=== PATIENT | female | born 1945 | race Caucasian/White ===

== ENCOUNTER → 2017-08-21 | Day surgery (SDC) | payer OTHER ==
[~2017-08-21] VITALS: Ht 167.6 cm; Wt 72.6 kg
[~2017-08-21] MED LIST: ATORVASTATIN CA10 M1 PO; CALTRATE 600 +1 EACH PO; CENTRUM SILVER1 EAC3 PO; HYDROCHLOROTH12.5 M2 PO; LEVOTHYROXINE125 MCG PO; LOPRESSOR100 M1 PO; VITAMIN D1000 UNIT PO
--- NOTE | 2017-08-21 09:36 | Operative Report ---
Operative/Inv Procedure Report Surgery Date: 08/21/17 Name of Procedure: Cataract extraction lens implantation left eye Pre-Operative Diagnosis: Age-related cataract left eye 20/40 vision 20/200 glare vision Post-Operative Diagnosis: Same Estimated Blood Loss: none Surgeon/Research Animal Attendant: Hosea EDMONDSON,Paolo Meyers Anesthesia: local monitored anesthesi Complications: None Operative/Procedure Note Note: The patient was brought to the operating room standard monitoring equipment was attached the patient was prepped and draped in the usual fashion for intraocular surgery. A lid speculum was placed to retract the lids. The case was begun by making a temporal incision with a 2.4 mm keratome. The eye was stabilized with a Howell ring during this incision. 1 mL of non-preserved lidocaine was introduced into the anterior chamber to provide anesthesia. The anterior chamber was then filled and deepened with viscoelastic. A curvilinear capsulorrhexis was achieved using a 30-gauge needle and is a cystotome and capsulorrhexis was finished using a Utrata forceps. A second or paracentesis incision was made temporally with a 1 mm MVR blade. The lens was then hydrodissected with balanced salt solution and found to be rotatable. The lens was emulsified using phacoemulsification and a modified four-quadrant cracking technique. The residual cortical material was removed using automated irrigation and aspiration and as much of the anterior capsular rim was cleaned as well as possible. The posterior capsule was cleaned first with the automated machine on a low setting and then manually with a Jermaine squeegee. The capsular bag was deepened with viscoelastic. The lens a Technis 1 26.0 Diopter placed into the bag under direct visualization and rotated so that the haptics were at 12 and 6:00. Viscoelastic was then removed from the eye by flushing it out and then by automated irrigation and aspiration. The eye was pressurized to a normal tone. 1/10 of a cc of vancomycin solution was introduced into the anterior chamber to provide antibiotic prophylaxis. The wounds were sealed by hydrating the stroma adjacent to them and the eye was left at a proper tone after the wounds were checked and found not to be leaking. The lid speculum was removed from the orbit. Antibiotic and steroid drops were placed on the eye and then the eye was shielded. Monitoring equipment was removed from the patient and the patient was removed from the operative suite to the holding area. The patient tolerated the procedure well and will be seen in the office tomorrow.
== END ==
LOC: STS 01:36
DX: H25.9 Unspecified age-related cataract (principal); I10 Essential (primary) hypertension; E03.9 Hypothyroidism, unspecified
CPT/HCPCS: J2250; V2632

== ENCOUNTER 2017-09-05 03:26 | Observation (INO) | payer OTHER ==
[~2017-09-05] VITALS: Ht 167.6 cm; Wt 78.6 kg
--- NOTE | 2017-09-05 09:46 | Operative Report ---
Operative/Inv Procedure Report Surgery Date: 09/05/17 Name of Procedure: Cataract extraction lens implantation right eye Pre-Operative Diagnosis: Age related cataract right eye 20/40 vision 20/200 glare vision Post-Operative Diagnosis: Same Estimated Blood Loss: none Surgeon/Lead Cashier: Hosea EDMONDSON,Paolo Meyers Anesthesia: local monitored anesthesi Complications: None Operative/Procedure Note Note: The patient was brought to the operating room standard monitoring equipment was attached the patient was prepped and draped in the usual fashion for intraocular surgery. A lid speculum was placed to retract the lids. The case was begun by making 1 partial-thickness corneal relaxing incisions at 60. A temporal incision with a 2.4 mm keratome. The eye was stabilized with a Howell ring during this incision. 1 mL of non-preserved lidocaine was introduced into the anterior chamber to provide anesthesia. The anterior chamber was then filled and deepened with viscoelastic. A curvilinear capsulorrhexis was achieved using a 30-gauge needle and is a cystotome and capsulorrhexis was finished using a Utrata forceps. A second or paracentesis incision was made temporally with a 1 mm MVR blade. The lens was then hydrodissected with balanced salt solution and found to be rotatable. The lens was emulsified using phacoemulsification and a modified four-quadrant cracking technique. The residual cortical material was removed using automated irrigation and aspiration and as much of the anterior capsular rim was cleaned as well as possible. The posterior capsule was cleaned first with the automated machine on a low setting and then manually with a Jermaine squeegee. The capsular bag was deepened with viscoelastic. The lens a Technis 1 25.5 Diopter placed into the bag under direct visualization and rotated so that the haptics were at 12 and 6:00. Viscoelastic was then removed from the eye by flushing it out and then by automated irrigation and aspiration. The eye was pressurized to a normal tone. 1/10 of a cc of vancomycin solution was introduced into the anterior chamber to provide antibiotic prophylaxis. The wounds were sealed by hydrating the stroma adjacent to them and the eye was left at a proper tone after the wounds were checked and found not to be leaking. The lid speculum was removed from the orbit. Antibiotic and steroid drops were placed on the eye and then the eye was shielded. Monitoring equipment was removed from the patient and the patient was removed from the operative suite to the holding area. The patient tolerated the procedure well and will be seen in the office tomorrow.
--- NOTE | 2017-09-05 13:05 | Cons- Cardiology ---
General Information and HPI Consulting Request Date of Consult: 09/05/17 Requested By: Hosea EDMONDSON,Paolo Meyers Reason for Consult: Atrial fibrillation Source of Information: patient Exam Limitations: no limitations History of Present Illness: The patient is a 72-year-old female who is followed Demetrio Street MD. The patient is in the hospital today for right cataract surgery with Dr. Jc. The patient was noted to be in atrial fibrillation subsequent to the procedure and I was asked see the patient for further evaluation. Patient has a history of hypertension and hypothyroidism which is been managed medically with no issues. She has had no recent changes in her medications. The patient does note that she has had intermittent palpitations for many years. She denies any documented history of atrial fibrillation. At the moment, the patient is in atrial fibrillation with a variable rate. She denies any significant cardiac symptoms at the moment although she does notice an intermittent fluttering. Otherwise she is totally stable. Allergies/Medications Allergies: Coded Allergies: No Known Allergies (09/04/17) Home Med List: Apixaban (Eliquis) 5 MG TABLET 5 MG PO BID A fib . Atorvastatin Calcium 10 MG TABLET 1 TAB PO QPM CHOLESTEROL (Reported) Calcium Carbonate/Vitamin D3 (Caltrate 600 + D Tablet) (Unknown Strength) TABLET (Unknown Dose) PO DAILY SUPPLEMENT (Reported) Cholecalciferol (Vitamin D3) (Vitamin D) 1,000 UNIT TABLET 1 TAB PO DAILY SUPPLEMENT (Reported) Hydrochlorothiazide 12.5 MG TABLET 1 TAB PO DAILY BP (Reported) Levothyroxine Sodium 125 MCG TABLET 0.5 TAB PO DAILY THYROID (Reported) Metoprolol Tartrate (Lopressor) 100 MG TABLET 1 TAB PO BID HEART/BP (Reported ) Multivit-Min/FA/Lycopen/Lutein (Centrum Silver Tablet) 0.4 MG-300 MCG-250 MCG TABLET 1 TAB PO DAILY SUPPLEMENT (Reported) Current Medications: Current Medications Sig/Edda Start time Last Medication Dose Route Stop Time Status Admin Cefuroxime Sodium 10 MG ONCE 09/05 NR RADHA 09/05 2358 Lidocaine/Epinephrine 3 ML ONE 09/05 NR RETR 09/05 2358 Past History Medical History Cardiovascular: hypertension Endocrine: hypothyroidism Surgical History Surgical History: cataract removal Exam & Diagnostic Data Vital Signs and I&O Vital Signs Date Time Temp Pulse Resp B/P B/P Pulse O2 O2 Flow FiO2 Mean Ox Delivery Rate 09/06 958 87 144/86 09/06 0649 97.6 87 20 144/86 96 Room Air 09/05 2247 97.8 99 18 108/60 97 09/05 2119 100 110/60 Intake & Output 09/06 0809/06 0000 09/05 1600 09/05 0800 09/05 0000 Intake Total 500 200 300 Output Total Balance 500 200 300 Intake, Oral 500 200 300 Patient 173 lb Weight Physical Exam: General Appearance: well developed/nourished, alert, awake, oriented Head: normal HEENT: Normal; right eye bandage in place post cataract surgery Neck: supple, JVP normal, carotid upstrokes normal bilaterally, no masses or thyromegaly Respiratory: chest non-tender, clear to auscultation and percussion bilaterally Cardiovascular: Irregular S1, S2, 1/6 systolic murmur Abdomen: normal bowel sounds, soft, non-tender Extremities: normal inspection, no edema Vascular: Pulses are 2+ and equal bilaterally Neurologic: Grossly normal/nonfocal Labs/[place] Results: Laboratory Tests 09/06 09/06 09/05 09/05 0440 0440 2230 1620 Chemistry Sodium (137 - 145 mmol/L) 144 Potassium (3.5 - 5.1 mmol/L) 4.0 Chloride (98 - 107 mmol/L) 102 Carbon Dioxide (22 - 30 mmol/L) 28 Anion Gap (5 - 16) 14 BUN (7 - 17 mg/dL) 17 Creatinine (0.5 - 1.0 mg/dL) 0.9 Estimated GFR (>60 ml/min) > 60 BUN/Creatinine Ratio (7 - 25 %) 18.9 Troponin I (< 0.11 ng/ml) < 0.01 < 0.01 < 0.01 Hematology CBC w Diff NO MAN DIFF REQ WBC (4.8 - 10.8 /CUMM) 6.8 RBC (4.20 - 5.40 /CUMM) 5.24 Hgb (12.0 - 16.0 G/DL) 15.0 Hct (37 - 47 %) 45.8 MCV (81.0 - 99.0 FL) 87.5 MCH (27.0 - 31.0 PG) 28.7 MCHC (33.0 - 37.0 G/DL) 32.8 L RDW (11.5 - 14.5 %) 14.5 Plt Count (130 - 400 /CUMM) 206 MPV (7.4 - 10.4 FL) 8.9 Gran % (42.2 - 75.2 %) 51.6 Lymphocytes % (20.5 - 51.1 %) 38.6 Monocytes % (1.7 - 9.3 %) 7.5 Eosinophils % (0 - 5 %) 1.6 Basophils % (0.0 - 2.0 %) 0.7 Absolute Granulocytes (1.4 - 6.5 /CUMM) 3.5 Absolute Lymphocytes (1.2 - 3.4 /CUMM) 2.6 Absolute Monocytes (0.10 - 0.60 /CUMM) 0.5 Absolute Eosinophils (0.0 - 0.7 /CUMM) 0.1 Absolute Basophils (0.0 - 0.2 /CUMM) 0 09/05 1107 Chemistry Sodium (137 - 145 mmol/L) 144 Potassium (3.5 - 5.1 mmol/L) 3.9 Chloride (98 - 107 mmol/L) 101 Carbon Dioxide (22 - 30 mmol/L) 31 H Anion Gap (5 - 16) 13 BUN (7 - 17 mg/dL) 22 H Creatinine (0.5 - 1.0 mg/dL) 0.8 Estimated GFR (>60 ml/min) > 60 BUN/Creatinine Ratio (7 - 25 %) 27.5 H Magnesium (1.6 - 2.3 mg/dL) 2.0 TSH (0.270 - 4.200 uIU/mL) 3.170 Diagnostic Data EKG Results Atrial fibrillation; reasonable rate control; nonspecific ST-T wave changes Assessment/Plan Assessment/Plan Assessment: 1. Paroxysmal atrial fibrillation with elevated rate 2. Hypertension 3. Hypothyroidism 4. Heart murmur 5. Status post right cataract surgery Recommendations: -The patient has a history of palpitations in the past. She is noted to be in atrial for ablation post cataract surgery. She is on metoprolol 100 mg twice daily. Despite this fact she has episodes of elevated heart rate. -Admit to [address] [place] [address] telemetry as observation -Monitor heart rate overnight -If necessary, increase metoprolol dose to 125 mg twice daily -The patient will need to be started on oral anticoagulation in the morning. Eliquis 5 mg twice daily can be started. I discussed the case with Dr. Jc and with Dr. Street her primary care physician. -In the morning, whether the patient has reverted to sinus rhythm or remains in atrial for ablation with controlled rate, she can be safely discharged at that time barring any unforeseen issues. -The patient will follow up with me in the office in 1-2 weeks for further evaluation -If possible, echocardiogram should be obtained prior to discharge. If this is not possible I will do it as an outpatient later. Consult Acknowledgment - Thank you for your consult request.
--- NOTE | 2017-09-05 14:21 | History & Physical ---
Kenrick EDMONDSON,Hector 09/05/17 1421: General Information and HPI MD Statement: I have seen and personally examined HOMERO IBARRA and documented this H&P. The patient is a 72 year old F who presented with a patient stated chief complaint of [a fib]. Source of Information: patient Exam Limitations: no limitations History of Present Illness: Patient is a 71-year-old female with a PMH significant for HTN, HLD, hypothyroidism, osteoarthritis, cataracts who underwent elective right eye cataract surgery today, and was found to be in A. fib after the procedure. She was in her usual state of health this morning when she presented for the procedure. The procedure was successful without other issues. Patient reports feeling a "fluttering" feeling in her chest but denies any chest pain, chest discomfort, shortness of breath, nausea, diaphoresis. His palpitations have resolved prior to being seen by the medical team. Patient follows with Demetrio Street MD, and reports that she has experienced intermittent episodes of palpitations since her 30s. She has been worked up by cardiology and reports that there was nothing found from the workup. She is currently comfortable and reports no pain in the right eye or pain or discomfort anywhere else at the moment. Allergies/Medications Allergies: Coded Allergies: No Known Allergies (09/04/17) Past History Travel History Traveled to [place] past 21 day No Medical History EENT: cataracts Cardiovascular: hypertension, hyperlipidemia Musculoskeletal: osteoarthritis Endocrine: hypothyroidism Surgical History Surgical History: cataract removal, nasal surgery secondary to trauma Past Family/Social History Family History Relations & Conditions if any SISTER FH: [place] (myocardial infarction), Onset: 60+. Psychosocial History Smoking Status: Former Smoker ETOH Use: occasional use Illicit Drug Use: denies illicit drug use Functional Ability ADLs Independent: dressing, eating, toileting, bathing. Ambulation: independent Review of Systems Review of Systems Constitutional: Denies: chills, diaphoresis, fever, malaise. EENTM: Denies: eye pain. Cardiovascular: Reports: palpitations. Denies: chest pain, orthopena, peripheral edema, syncope. Respiratory: Denies: cough, orthopnea, short of breath. GI: Reports: no symptoms. Genitourinary: Reports: no symptoms. Musculoskeletal: Reports: no symptoms. Skin: Reports: no symptoms. Neurological/Psychological: Denies: numbness, tingling. Exam & Diagnostic Data Last 24 Hrs of Vital Signs/I&O Vital signs as per PACU, BP 140s over 60s, saturating 98% on room air, pulse 100s-150s Physical Exam General Appearance Alert, Oriented X3, Cooperative, No Acute Distress HEENT patch over R eye Neck No JVD, +2 Carotid Pulse wo Bruit Cardiovascular Normal S1, Normal S2, tachycardic with HR in 100s, irregularly irregular rhythm Lungs Clear to Auscultation, Normal Air Movement Abdomen Normal Bowel Sounds, Soft, No Tenderness Neurological Cranial Nerves 3-12 NL Last 24 Hrs of Labs/[place]: Laboratory Tests 09/05/17 1107: Anion Gap 13, Estimated GFR > 60, BUN/Creatinine Ratio 27.5 H, Magnesium 2.0, TSH 3.170 Diagnostic Data EKG Results a fib Assessment/Plan Assessment: Patient is a 71-year-old female with a PMH significant for HTN, HLD, hypothyroidism, osteoarthritis, cataracts who underwent elective right eye cataract surgery today, and was found to be in A. fib after the procedure. Per the chart, the patient received 2.5 mg of Lopressor IV in the PACU for A fib with RVR #Problem list new onset A. fib with RVR #chronic medical problems #Cataract removal right eye surgery postop day 0 Plan -Place in observation on telemetry -Continuous telemetry monitoring -Rule out ACS with serial troponins and EKGs -Given that the patient has just converted to A fib we will hold anticoagulation for now and observe. -When now we will continue home dose of metoprolol 100 mg twice daily -Continue other home medications -Will start postoperative of optholamic drops prednisolone and ofloxacin, 4 times a day, tomorrow morning per optho -Cardiology recommendation was appreciated, patient is being followed by Dr. Quintana Diet: Heart healthy DVT prophylaxis: Alps, SC heparin CODE STATUS: Full code As Ranked By This Provider Problem List: 1. A-fib Core Measures/Misc (01/14) Acute Coronary Syndrome ACS Diagnosis: No Congestive Heart Failure Congestive Heart Failure Diagnosis No Cerebrovascular Accident CVA/TIA Diagnosis: No VTE (View Protocol) VTE Risk Factors Age>40 No Mechanical VTE Prophylaxis d/t N/A MechProphylax Ordered No VTE Pharm Prophylaxis d/t Surgical Contraindication Sepsis (View protocol) Sepsis Present: No Observation Initial Note - I have personally examined HOMERO IBARRA on 09/05/17 at 1437. The disposition of HOMERO IBARRA is uncertain at this time and before a determination can be made, she requires a period of observation for the following reasons [a fib] Kemar Lim 09/05/17 1429: Observation Initial Note - I have personally examined HOMERO IBARRA on 09/05/17 at 1556. The disposition of HOMERO IBARRA is uncertain at this time and before a determination can be made, she requires a period of observation for the following reasons [] Resident Review Statement Resident Statement: examined this patient, discussed with journalism intern, agreed with journalism intern Other Findings: 72 year old woman, former smoker with pmh history significant for B/L cataracts, HTN and hypothryoidism admitted today to same day surgery for Cataract extraction lens implantation right eye, found to be in atrial fibrillation with RVR during the procedure. On interview she stated that in her 30s she intermittent palpitations intermittent palpitations for which she had a workup done which was normal and did not reveal any cause. Since her 50s she has been experiencing "fluttering" which has been receiving in frequency as well as duration. These episodes often last for hours and occuring 2-3 times weekly. Denies chest pain, shortness of breath, orthopnea, lower extremity swelling, weakness, syncope, upper respiratory symptoms. Vitals afebrile, blood pressure 140s over 60s, saturating 98% on room air, heart rate 100-150 exam pertinent for S1-S2 no murmurs heard, no elevated JVP irregularly irregular pulse, rest of examination as above. Labs done in PACU BEP and TSH within normal limits Assessment/plan: New onset atrial fibrillation Was given IV 2.5 mg lopressor during her surgery. Given her symptoms, it is likely the patient has been going in and out of proximal A. fib for a few years now and the stress of surgery precipitated the RVR. We will admit her to telemetry floor for continuous cardiac monitoring, vitals per protocol. trend troponin EKG, echocardiogram to rule out atrial thrombus. ChadVASc score 3 with HAS BLED score [address] Will touch base with Dr[address] Jc to see when anticoagulation can be started. Will likely be started on Eliquis will continue her metoprolol Appreciate Cardiology input. Hypertension Continue HTCZ abd metoprolol Hypothyroidism continue levothryoxine Cataract removal right eye surgery postop day 0 no complication per Post op note DVT prophylaxis: ALPs till clearance from optho. diet: heart healthy full code. Ian Olsen MD 09/06/17 1120: General Information and HPI Allergies/Medications Home Med list Apixaban (Eliquis) 5 MG TABLET 5 MG PO BID A fib . Atorvastatin Calcium 10 MG TABLET 1 TAB PO QPM CHOLESTEROL (Reported) Calcium Carbonate/Vitamin D3 (Caltrate 600 + D Tablet) (Unknown Strength) TABLET (Unknown Dose) PO DAILY SUPPLEMENT (Reported) Cholecalciferol (Vitamin D3) (Vitamin D) 1,000 UNIT TABLET 1 TAB PO DAILY SUPPLEMENT (Reported) Hydrochlorothiazide 12.5 MG TABLET 1 TAB PO DAILY BP (Reported) Levothyroxine Sodium 125 MCG TABLET 0.5 TAB PO DAILY THYROID (Reported) Metoprolol Tartrate (Lopressor) 100 MG TABLET 1 TAB PO BID HEART/BP (Reported ) Multivit-Min/FA/Lycopen/Lutein (Centrum Silver Tablet) 0.4 MG-300 MCG-250 MCG TABLET 1 TAB PO DAILY SUPPLEMENT (Reported) Attending MD Review Statement Attending Statement Attending MD Statement: examined this patient, discuss w/resident/PA/EDUCATION TECHNICIAN, agreed w/resident/PA/EDUCATION TECHNICIAN, reviewed EMR data (avail) Attending Assessment/Plan: 72F PMH HTN, HLD, hypothyroidism, osteoarthritis, cataracts who underwent elective right eye cataract surgery today, and was found to be in A. fib after the procedure. Patient has a multi-year history of intermittent palpitations with no formal diagnosis of atrial fibrillation. She denies history of chest pain, lightheadedness, n/v, or syncope. She is currently asymptomatic. 1. New onset atrial fibrillation Plan - Observation in telemetry - Cardiology consult - Rate control - Will speak with cardiology about anti-coagulation - Continue home medications - DVT PPx
[2017-09-05 15:33] VITALS: BP 110/60
[2017-09-05 22:47] VITALS: BP 108/60
[2017-09-06 05:00] LABS: ABSOLUTE BASOPHIL COUNT 0 /CUMM (0.0-0.2); ABSOLUTE EOSINOPHIL COUNT 0.1 /CUMM (0.0-0.7); ABSOLUTE GRANULOCYTE CT 3.5 /CUMM (1.4-6.5); ABSOLUTE LYMPH COUNT 2.6 /CUMM (1.2-3.4); ABSOLUTE MONOCYTE COUNT 0.5 /CUMM (0.10-0.60); BASOPHIL % 0.7 % (0.0-2.0); EOSINOPHIL % 1.6 % (0-5); GRANULOCYTE % 51.6 % (42.2-75.2); HEMATOCRIT 45.8 % (37-47); MEAN CORPUSCULAR HGB 28.7 PG (27.0-31.0); MEAN CORPUSCULAR HGB CONC 32.8 G/DL (33.0-37.0); MEAN CORPUSCULAR VOLUME 87.5 FL (81.0-99.0); MEAN PLATELET VOLUME 8.9 FL (7.4-10.4); PLATELET COUNT 206 /CUMM (130-400); RBC DISTRIBUTION WIDTH 14.5 % (11.5-14.5); RED BLOOD CELL CT 5.24 /CUMM (4.20-5.40); WHITE BLOOD CELL COUNT 6.8 /CUMM (4.8-10.8)
[2017-09-06 06:49] VITALS: BP 144/86
--- NOTE | 2017-09-06 07:26 | PN-Observation ---
Kenrick EDMONDSON,Hector 09/06/17 0725: Observation Note Observation Note _ I have personally examined HOMERO IBARRA. her disposition is uncertain at this time. Before a determination can be made, she requires continued observation for the following reasons [new-onset A. fib]. Assessment/Plan Medical Assessment: Patient is a 71-year-old female with a PMH significant for HTN, HLD, hypothyroidism, osteoarthritis, cataracts who underwent elective right eye cataract surgery today, and was found to be in A. fib after the procedure. #Problem list new onset A. fib with RVR Patient remained in A. fib overnight, HR is well controlled on her current dose of beta-malena. Discussed with Dr. Quintana, cardiology who will follow with the patient after discharge within 1 week. -Start Eliquis 5 mg twice daily -Patient will continue her home metoprolol 100 mg twice daily as an outpatient as it has provided acceptable rate control so far. #chronic medical problems -Continue home medications #Cataract removal right eye surgery postop day [address] Jc over the phone, he will see the patient at 4 PM today after discharge. -Patient will continue prednisolone 1% eyedrops right eye 4 times a day, and ofloxacin eyedrops right eye 4 times a day Diet: Heart healthy DVT prophylaxis: Alps, SC heparin CODE STATUS: Full code Problem List: 1. A-fib Consulting Request: Consulting Specialty: Cardiology Subjective Follow-up For: New-onset A. fib Tele-Events Since Last Visit: A. fib with HR [id number], averaging in the [id number] Subjective: Patient was seen and examined at bedside. She is resting comfortably. She had no acute events overnight. She still states that she did not sleep well, however is unable to articulate why there is, states that she was just uncomfortable in general being in the hospital. She is eager to be discharged. And currently has no complaints. She states that the fluttering sensation in her chest is completely resolved. She denies any nausea, vomiting, fever, chills, chest pain, shortness of breath. Review of Systems Constitutional: Reports: see HPI. Objective Last 24 Hrs of Vital Signs/I&O Vital Signs Date Time Temp Pulse Resp B/P B/P Pulse O2 O2 Flow FiO2 Mean Ox Delivery Rate 09/06 0649 97.6 87 20 144/86 96 Room Air 09/05 2247 97.8 99 18 108/60 97 09/05 2119 100 110/60 09/05 1533 98.0 11 20 110/60 97 Room Air Intake & Output 09/06 0800 09/06 0000 09/05 1600 Intake Total 200 300 Output Total Balance 200 300 Intake, Oral 200 300 Patient 173 lb Weight Physical Exam General Appearance: Alert, Oriented X3, Cooperative, No Acute Distress Neck: No JVD Cardiovascular: Normal S1, Normal S2, irregularly irregular rhythm, tachycardic with HR in 100s Lungs: Clear to Auscultation, Normal Air Movement Abdomen: Normal Bowel Sounds, Soft, No Tenderness Neurological: Normal Speech, Normal Tone, Sensation Intact Extremities: No Clubbing, No Cyanosis, No Edema Current Medications: Current Medications Sig/Edda Start time Last Medication Dose Route Stop Time Status Admin Atorvastatin Calcium 10 MG QPM 09/05 2099 AC 09/05 PO 2118 Cefuroxime Sodium 10 MG ONCE 09/05 0000 DC RADHA 09/05 2358 Heparin Sodium 5,000 UNIT Q8 09/05 2199 AC 09/06 (Porcine) SC 0550 Heparin Sodium/ 25,000 UNIT Q24H 09/05 1830 DC Dextrose IV Dextrose/Water 500 ML Hydrochlorothiazide 12.5 MG DAILY 09/06 899 AC PO Levothyroxine Sodium 0.0625 MG DAILY 09/06 899 AC PO Lidocaine/Epinephrine 3 ML ONE 09/05 0000 DC RETR 09/05 2358 Metoprolol Tartrate 100 MG BID 09/05 2099 AC 09/05 PO 2118 Ofloxacin 1 GTT Q6 09/06 599 AC 09/06 OPH 0549 Prednisolone 1 GTT Q6 09/06 0600 AC 09/06 OPH 0549 Last 24 Hrs of Labs/Mics: Laboratory Tests 09/06/17 0440: Troponin I < 0.01 09/06/17 0440: Anion Gap 14, Estimated GFR > 60, BUN/Creatinine Ratio 18.9, CBC w Diff NO MAN DIFF REQ, RBC 5.24, MCV 87.5, MCH 28.7, MCHC 32.8 L, RDW 14.5, MPV 8.9, Gran % 51.6, Lymphocytes % 38.6, Monocytes % 7.5, Eosinophils % 1.6, Basophils % 0.7, Absolute Granulocytes 3.5, Absolute Lymphocytes 2.6, Absolute Monocytes 0.5, Absolute Eosinophils 0.1, Absolute Basophils 0 09/05/17 2230: Troponin I < 0.01 09/05/17 1620: Troponin I < 0.01 09/05/17 1107: Anion Gap 13, Estimated GFR > 60, BUN/Creatinine Ratio 27.5 H, Magnesium 2.0, TSH 3.170 Raúl EDMONDSON,Ian 09/06/17 1121: Addendum Addendum 72F PMH HTN, HLD, hypothyroidism, osteoarthritis, cataracts who underwent elective right eye cataract surgery today, and was found to be in A. fib after the procedure. Patient has a multi-year history of intermittent palpitations with no formal diagnosis of atrial fibrillation. She denies history of chest pain, lightheadedness, n/v, or syncope. She is currently asymptomatic. She is rate controlled. 1. New onset atrial fibrillation Plan - Stable for discharge home - Cardiology consult - Will speak with cardiology about anti-coagulation - Continue home medications
--- NOTE | 2017-09-06 07:33 | Patient Discharge Instructions ---
Discharge Instructions General Discharge Information You were seen/treated for: Atrial Fibrillation Special Instructions: Follow-up with your primary care physician within 1 week of discharge. Follow-up with Dr. Jc on the day of discharge. Follow-up with Dr. Pimentel within 1 week of discharge. We have provided you with a referral. Take all medications as directed, including the eye drops provided by Dr. Jc. Call your doctor or return to the ER if you should have chest pain, shortness of breath, lightheadedness or loss of consciousness. Acute Coronary Syndrome Inclusion Criteria At DC or during hospital stay patient has or had the following: ACS DIAGNOSIS No Discharge Core Measures Meds if any: Prescribed or Continued at Discharge Meds if any: NOT Prescribed or Continued at Discharge Congestive Heart Failure Inclusion Criteria At DC or during hospital stay patient has or had the following: CHF DIAGNOSIS No Discharge Core Measures Meds if any: Prescribed or Continued at Discharge Meds if any: NOT Prescribed or Continued at Discharge Cerebrovascular accident Inclusion Criteria At DC or during hospital stay patient has or had the following: CVA/TIA Diagnosis No Discharge Core Measures Meds if any: Prescribed or Continued at Discharge Meds if any: NOT Prescribed or Continued at Discharge Venous thromboembolism Inclusion Criteria VTE Diagnosis No VTE Type NONE VTE Confirmed by (Test) NONE Discharge Core Measures - Per Current guidelines, there needs to be overlap - treatment for the first 5 days of Warfarin therapy. - If discharged on Warfarin prior to 5 days of - overlap therapy, the patient will need to be - assessed for post discharge needs including - *Post discharge parental anticoagulation - *Warfarin and/or parental anticoagulation education - *Follow up date to check INR post discharge At least 5 days overlap therapy as Inpatient No Meds if any: Prescribed or Continued at Discharge Note: Overlap Therapy is Warfarin and Anticoagulant Meds if any: NOT Prescribed or Continued at Discharge
[2017-09-06] MEDS ORDERED: ELIQUIS5 M1 PO ×2 (09:13→10:39)
[2017-09-06 09:59] VITALS: BP 144/86
--- NOTE | 2017-09-06 16:02 | PN- Cardiology ---
Subjective Subjective: Patient is doing well today. No complaints or symptoms. She remains in atrial fibrillation. Objective Vital Signs and I&Os Patient is feeling fine today. She remains in atrial for ablation. Her heart rate is well controlled.Vital Signs Date Time Temp Pulse Resp B/P B/P Pulse O2 O2 Flow FiO2 Mean Ox Delivery Rate 09/06 0859 87 144/86 09/06 0649 97.6 87 20 144/86 96 Room Air 09/05 2247 97.8 99 18 108/60 97 09/05 2119 100 110/60 Intake & Output 09/06 1600 09/06 0800 09/06 0000 09/05 1600 09/05 0809/05 0000 Intake Total 500 200 300 Output Total Balance 500 200 300 Intake, Oral 500 200 300 Patient 173 lb Weight Physical Exam: General Appearance: well developed/nourished, alert, awake, oriented Head: normal HEENT: Normal Neck: supple, JVP normal, carotid upstrokes normal bilaterally, no masses or thyromegaly Respiratory: chest non-tender, clear to auscultation and percussion bilaterally Cardiovascular: Irregular S1, S2, 1/6 systolic murmur Abdomen: normal bowel sounds, soft, non-tender Extremities: normal inspection, no edema Vascular: Pulses are 2+ and equal bilaterally Neurologic: Grossly normal/nonfocal Current Medications: Current Medications Sig/Edda Start time Last Medication Dose Route Stop Time Status Admin Apixaban 5 MG BID 09/06 899 DCD 09/06 PO 1016 Atorvastatin Calcium 10 MG QPM 09/05 2099 DCD 09/05 PO 2119 Cefuroxime Sodium 10 MG ONCE 09/05 0000 DC RADHA 09/05 235 Heparin Sodium 5,000 UNIT Q8 09/05 2200 DC 09/06 (Porcine) SC 0550 Heparin Sodium/ 25,000 UNIT Q24H 09/05 1830 DC Dextrose IV Dextrose/Water 500 ML Hydrochlorothiazide 12.5 MG DAILY 09/06 899 DCD 09/06 PO 0959 Levothyroxine Sodium 0.0625 MG DAILY 09/06 899 DCD 09/06 PO 0914 Lidocaine/Epinephrine 3 ML ONE 09/05 0000 DC RETR 09/05 2359 Metoprolol Tartrate 100 MG BID 09/05 2099 DCD 09/06 PO 0959 Ofloxacin 1 GTT Q6 09/06 06 DCD 09/06 OPH 1215 Prednisolone 1 GTT Q6 09/06 0600 DCD 09/06 OPH 1215 Results Last 48 Hrs of Labs/Mics: Laboratory Tests 09/06/17 0440: Troponin I < 0.01 09/06/17 0440: Anion Gap 14, Estimated GFR > 60, BUN/Creatinine Ratio 18.9, CBC w Diff NO MAN DIFF REQ, RBC 5.24, MCV 87.5, MCH 28.7, MCHC 32.8 L, RDW 14.5, MPV 8.9, Gran % 51.6, Lymphocytes % 38.6, Monocytes % 7.5, Eosinophils % 1.6, Basophils % 0.7, Absolute Granulocytes 3.5, Absolute Lymphocytes 2.6, Absolute Monocytes 0.5, Absolute Eosinophils 0.1, Absolute Basophils 0 09/05/17 2230: Troponin I < 0.01 09/05/17 1620: Troponin I < 0.01 09/05/17 1107: Anion Gap 13, Estimated GFR > 60, BUN/Creatinine Ratio 27.5 H, Magnesium 2.0, TSH 3.170 Assessment/Plan Assessment/Plan Assessment: 1. Paroxysmal atrial for ablation 2. Hypertension 3. Hypothyroidism 4. Minimal to mild mitral and tricuspid insufficiency on echocardiogram 5. Status post right cataract surgery one day ago Recommendations: -From my perspective, the patient is stable for discharge today. -Continue current medications. -Eliquis 5 mg twice daily started -Case discussed with Dr. Jc, patient follow-up to be arranged with his office -Patient will follow up with me in the office in 1 week to make further plans. Continue telemetry? No
--- NOTE | 2017-09-07 11:02 | ECHOCARDIOGRAM REPORT ---
HOMERO IBARRA Age: 72 : 1945 Gender: F Exam Date: 09/06/2017 11:17 Exam Location: [address] Ht (in): 66 Wt (lb): 160 BSA: 1.85 BP: 144 / 86 Ordering Physician: Kemar Lim MD Referring Physician: Kemar Lim MD Technologist: Enoc Ohara [facility] Room Number: 189-1 Indications: AFIB/FLUTTER Rhythm: Atrial fibrillation Technical Quality: Fair FINDINGS Left Ventricle Normal global left ventricular size, wall thickness, systolic function with no obvious regional wall motion abnormalities. Normal left ventricular ejection fraction estimated at 55-60%. Right Ventricle Normal right ventricular size and function. Right Atrium Normal right atrial size. Left Atrium Left atrial size at the upper limits of normal. Mitral Valve Mitral valve thickened. Trace mitral regurgitation. Aortic Valve Trileaflet aortic valve. Focal thickening of the aortic valve cusps. No aortic stenosis. No aortic regurgitation. Tricuspid Valve Tricuspid valve not well visualized, grossly normal. Mild tricuspid regurgitation. Pulmonic Valve Structurally normal pulmonic valve. Pericardium Normal pericardium. No pericardial effusion. Great Vessels Normal size aortic root and proximal ascending aorta. CONCLUSIONS 1. Minimal aortic sclerosis is present with no valvular stenosis or insufficiency. 2. Mild thickening of the mitral leaflets is present with minimal mitral insufficiency. 3. There is no pericardial fluid present. 4. The left ventricular chamber size and systolic function appear normal with no resting wall motion abnormalities. 5. Mild tricuspid insufficiency is present with no evidence of pulmonary hypertension. Bernardo Quintana M.D. (Electronically Signed) Final Date: 07 Sep 2017 11:01 MEASUREMENTS (Male / Female) Normal Values 2D ECHO LV Diastolic Diameter PLAX 4.4 cm 4.2 - 5.9 / 3.9 - 5.3 cm LV Systolic Diameter PLAX 3.1 cm 2.1 - 4.0 cm LV Fractional Shortening PLAX 28.9 % 25 - 46 % LV Ejection Fraction 2D Teich 55.7 % IVS Diastolic Thickness 0.9 cm LVPW Diastolic Thickness 0.8 cm LV Relative Wall Thickness 0.4 RV Internal Dim ED PLAX 2.7 cm 1.9 - 3.8 cm LVOT Diameter 1.8 cm Aortic Root Diameter 2.8 cm LA Systolic Diameter LX 3.6 cm 3.0 - 4.0 / 2.7 - 3.8 cm DOPPLER AV Peak Velocity 97.9 cm/s AV Peak Gradient 3.8 mmHg AV Mean Velocity 66.1 cm/s AV Mean Gradient 2.0 mmHg AV Velocity Time Integral 22.0 cm LVOT Peak Velocity 58.7 cm/s LVOT Peak Gradient 1.4 mmHg LVOT Mean Velocity 39.4 cm/s LVOT Mean Gradient 1.0 mmHg LVOT Velocity Time Integral 14.2 cm LVOT Stroke Volume 36.1 cm AV Area Cont Eq vti 1.6 cm AV Area Cont Eq pk 1.5 cm MV Peak Velocity 64.8 cm/s MV Peak Gradient 1.7 mmHg MV Mean Velocity 37.7 cm/s MV Mean Gradient 1.0 mmHg Mitral E Point Velocity 59.2 cm/s Mitral A Point Velocity 29.1 cm/s Mitral E to A Ratio 2.0 MV PHT Velocity 71.9 cm/s MV Deceleration [place] 352.0 cm/s MV Pressure Half Time 61.3 ms MV Area PHT 3.6 cm MV Deceleration Time 352.0 ms TR Peak Velocity 248.5 cm/s TR Peak Gradient 24.7 mmHg Right Atrial Pressure 5.0 mmHg Pulmonary Artery Systolic Pressu 29.7 mmHg Right Ventricular Systolic Press 29.7 mmHg PV Peak Velocity 53.8 cm/s PV Peak Gradient 1.2 mmHg PV Mean Velocity 44.6 cm/s PV Mean Gradient 1.0 mmHg PV Velocity Time Integral 14.4 cm LV E' Lateral Velocity 11.5 cm/s Mitral E to LV E' Lateral Ratio 5.1 LV E' Septal Velocity 8.5 cm/s Mitral E to LV E' Septal Ratio 7.0
== END 2017-09-06 12:40 ==
LOC: STS 03:26 → PACUH 13:29 → 1NO 13:29 → EDBEDREQ 14:13 → ENRESERV 14:24 → ENTRNSPT 15:04 → EDTRNSPT 15:18 → EDTRNSPTSTS 15:18 → CMPTRNSPT 15:25 → 1NO 15:32 → ENPENDDIS 09-06 10:47 → 1NO 09-06 12:40
PROVIDERS: Internal Medicine
DX: H25.9 Unspecified age-related cataract (principal); I97.89 Other postprocedural complications and disorders of the circulatory system, not elsewhere classified; I48.0 Paroxysmal atrial fibrillation; Y83.8 Other surgical procedures as the cause of abnormal reaction of the patient, or of later complication, without mention of misadventure at the time of the procedure; I10 Essential (primary) hypertension; E78.5 Hyperlipidemia, unspecified; M19.90 Unspecified osteoarthritis, unspecified site; E03.9 Hypothyroidism, unspecified; Z87.891 Personal history of nicotine dependence
CPT/HCPCS: 6020; 36415; 36592; 82436; 93005; 93010; 93306; 96372; G0378; J1644; J7060; V2632